=== PATIENT | female | born 1995 | race Caucasian/White ===

== ENCOUNTER 2020-12-25 15:58 | Day surgery (SDC) | payer SELFPAY ==
[2020-12-25 16:35] VITALS: BMI 24.0
[2020-12-25] MEDS ORDERED: hydrALAZINE 20 MG/ML VIAL SLOW IVP PRN (17:09)
[2020-12-25 18:07] LABS: Bilirubin Neg (Negative); Blood, Urine Negative (Negative); Clarity Clear (Clear); Glucose, Urine (Dipstick) Normal (Negative); Ketone, Urine Negative (Negative); Leukocyte 500 (Negative); Nitrite Negative (Negative); Protein, Urine (Dipstick) Negative (Neg-Trace); Specific Gravity, Urine 1.005 (1.002-1.036); Urobilinogen Normal mg/dL (Less than 2)
[2020-12-25 18:09] LABS: Urine Culture Reflex No No
[2020-12-25 19:05] LABS: Bacteria/HPF 2+ HPF (None Seen); RBC/HPF 0-3 HPF (0-3)
== END 2020-12-25 18:32 | disposition home health service (06) ==
LOC: CSHLD/OP 15:58
PROVIDERS: ATTEND Obstetrics & Gynecology
DX: O23.42 Unspecified infection of urinary tract in pregnancy, second trimester (principal); Z3A.25 25 weeks gestation of pregnancy; Z79.2 Long term (current) use of antibiotics; Z79.899 Other long term (current) drug therapy
CPT/HCPCS: 81001; 99282

== ENCOUNTER 2021-04-01 12:05 | Outpatient (CLI) | payer OTHER ==
[2021-04-02 08:26] LABS: SARS-CoV-2 PCR by NAA Not Detected (NotDetected)
== END 2021-04-01 12:06 | disposition home or self-care (01) ==
LOC: CSHLAB 12:05
PROVIDERS: ATTEND Obstetrics & Gynecology
DX: Z20.822 Contact with and (suspected) exposure to COVID-19 (principal)
CPT/HCPCS: U0003; U0005

== ENCOUNTER 2021-04-04 05:30 | Inpatient (IN) | payer OTHER ==
[2021-04-04 10:07] VITALS: BMI 28.3
[2021-04-04] MEDS ORDERED: Ondansetron PF 4 MG/2 ML Vial IVP PRN ×3 (10:08→18:40)
[2021-04-04] MEDS ORDERED: Famotidine/PF 20 mg/2ml Vial SLOW IVP PRN (10:08)
[2021-04-04] MEDS ORDERED: Promethazine HCl 25 MG/ML VIAL IM PRN ×3 (10:08→18:40)
[2021-04-04] MEDS ORDERED: hydrALAZINE 20 MG/ML VIAL SLOW IVP PRN ×2 (10:08→15:10)
[2021-04-04] MEDS ORDERED: Bicitra 30 ML UDCUP PO PRN (10:08)
[2021-04-04] MEDS ORDERED: ceFAZolin 2 GM/Dextrose 50 ML 2 GM in Premix Bag 1 BAG IVPB SCH (10:15)
[2021-04-04] MEDS ORDERED: Lactated Ringer's 1,000 ML IV SCH (10:15)
[2021-04-04] MEDS ORDERED: Morphine PF 10 MG/10 ML VIAL ONE (10:50)
[2021-04-04] MEDS ORDERED: Phenylephrine 40 MG/NS 250 ML 250 ML ONE (10:51)
[2021-04-04] MEDS ORDERED: Dexamethasone 4 mg/ml Vial ONE (10:51)
[2021-04-04] MEDS ORDERED: ePHEDrine Sulfate 50 MG/10 ML VIAL ONE (10:51)
[2021-04-04] MEDS ORDERED: Ondansetron PF 4 MG/2 ML Vial ONE (10:51)
[2021-04-04] MEDS ORDERED: Ketorolac Tromethamine 30 MG/ML VIAL ONE (10:51)
[2021-04-04] MEDS ORDERED: Oxytocin 10 UNITS/ML VIAL ONE (10:51)
[2021-04-04 11:20] LABS: Hemoglobin 12.1 g/dL (12.0-15.5); Mean Corpuscular HGB CONC 34.8 g/dL (32.0-36.0); Mean Corpuscular Hemoglobin 30.9 pg (27.0-33.0); Mean Platelet Volume 9.7 fl (7.4-10.4); Platelet Count 212 10x3/uL (150-450); RBC Distribution Width 13.2 % (11.5-14.5); Red Blood Cell (RBC) Count 3.91 10x6/uL (3.90-5.03); White Blood Cell (WBC) Count 10.2 10x3/uL (3.5-10.5)
[2021-04-04 12:03] LABS: Hep B Surf Ag Non-Reactive S/CO (NonReactive)
[2021-04-04 12:04] LABS: Syphilis Antibody Nonreactive (Nonreactive); Syphilis Antibody Index 0.04 S/CO (<1.00 Non-Reactive)
[2021-04-04 12:24] LABS: HBSAg Index 0.21 S/CO (0-0.99)
[2021-04-04] MEDS ORDERED: Glycopyrrolate 0.2 MG/ML 5 ML SYRINGE ONE (12:35)
[2021-04-04] MEDS ORDERED: Measles/Mumps/Rubella 10 MCG/0.5 ML VIAL SC ONE (15:10)
[2021-04-04] MEDS ORDERED: Methylergonovine 0.2 MG/ML VIAL IM PRN (15:10)
[2021-04-04] MEDS ORDERED: Lanolin Ointment 7 GM TUBE TOP PRN (15:10)
[2021-04-04] MEDS ORDERED: Bisacodyl 10 MG SUPP PR PRN (15:10)
[2021-04-04] MEDS ORDERED: Simethicone Chewable 80 MG TAB PO PRN (15:10)
[2021-04-04] MEDS ORDERED: diphenhydrAMINE 25 MG CAP PO PRN (15:10)
[2021-04-04] MEDS ORDERED: Boostrix 0.5 ML (Tdap) VIAL IM ONE (15:10)
[2021-04-04] MEDS ORDERED: Varicella virus, LIVE 0.5 ML VIAL SC ONE (15:10)
[2021-04-04] MEDS ORDERED: NS w/ Oxytocin 30 units 500 ML IV SCH (15:10)
[2021-04-04] MEDS ORDERED: HYDROcodone/Acetaminophen 5/325 mg Tablet PO PRN (15:10)
[2021-04-04] MEDS ORDERED: Zolpidem Tartrate 5 MG TAB PO PRN (15:10)
[2021-04-04] MEDS ORDERED: Ibuprofen 800 MG TAB PO SCH (17:00)
[2021-04-04] MEDS ORDERED: diphenhydrAMINE 50 MG/ML VIAL IVP PRN (18:40)
[2021-04-04] MEDS ORDERED: Naloxone HCl 0.4 mg/ml Vial IV PRN (18:40)
[2021-04-04] MEDS ORDERED: Naloxone HCl 0.4 mg/ml Vial IVP PRN ×2 (18:40)
[2021-04-04] MEDS ORDERED: Ketorolac Tromethamine 30 MG/ML VIAL IVP PRN (18:40)
[2021-04-04] MEDS ORDERED: Promethazine HCl 25 MG SUPP PR PRN (18:40)
[2021-04-04] MEDS ORDERED: Hydrocerin (Eucerin) Cream 120 gm Jar TOP PRN (18:40)
[2021-04-04] MEDS ORDERED: Communication Order-Pharmacy FS SCH (18:45)
[2021-04-04] MEDS: Docusate 100 MG CAP PO SCH (21:39)
[2021-04-04] MEDS: Ferrous Sulfate 325 MG TAB PO SCH (21:39)
[2021-04-05 04:55] LABS: Mean Corpuscular HGB CONC 33.7 g/dL (32.0-36.0); Mean Corpuscular Hemoglobin 30.6 pg (27.0-33.0); Mean Corpuscular Volume 90.8 fl (81.6-98.3); Mean Platelet Volume 9.7 fl (7.4-10.4); Platelet Count 173 10x3/uL (150-450); RBC Distribution Width 13.2 % (11.5-14.5); Red Blood Cell (RBC) Count 3.27 10x6/uL (3.90-5.03); White Blood Cell (WBC) Count 15.1 10x3/uL (3.5-10.5)
[2021-04-05] MEDS: Docusate 100 MG CAP PO SCH ×2 (08:52→21:44)
[2021-04-05] MEDS: Ibuprofen 800 MG TAB PO SCH ×2 (13:46→21:44)
[2021-04-05] MEDS: Prenatal Vitamin 1 TAB PO SCH (17:42)
[2021-04-05] MEDS: Ferrous Sulfate 325 MG TAB PO SCH ×2 (17:42→21:45)
[2021-04-05] MEDS: HYDROcodone/Acetaminophen 5/325 mg Tablet PO PRN (17:45)
[2021-04-05] MEDS ORDERED: Ibuprofen 800 MG TAB PO SCH ×2 (22:00)
[2021-04-06] MEDS: Ibuprofen 800 MG TAB PO SCH ×2 (05:28→07:45)
[2021-04-06] MEDS: Ferrous Sulfate 325 MG TAB PO SCH (08:07)
[2021-04-06] MEDS: HYDROcodone/Acetaminophen 5/325 mg Tablet PO PRN ×2 (08:09→12:44)
[2021-04-06] MEDS: Docusate 100 MG CAP PO SCH (08:11)
[2021-04-06] MEDS: Prenatal Vitamin 1 TAB PO SCH (08:11)
[2021-04-06 12:46] VITALS: BP 136/86; TEMP 98.7
== END 2021-04-06 13:00 | disposition home or self-care (01) | DRG 788 ==
LOC: CSHLD 09:21 → CSHPP 16:20
PROVIDERS: ADMIT Obstetrics & Gynecology; ATTEND Obstetrics & Gynecology
PROC: 10D00Z1 Extraction of Products of Conception, Low, Open Approach (ICD-10-PCS; principal; 2021-04-04)
DX: O35.0XX0 Maternal care for (suspected) central nervous system malformation in fetus, not applicable or unspecified (principal); Z3A.40 40 weeks gestation of pregnancy; Z37.0 Single live birth
CPT/HCPCS: 36415; 51702; 85027; 86780; 86850; 86900; 86901; 87340; J0690; J1100; J1885; J2274; J2405; J2590; S0028